=== PATIENT | male | born 1990 | race Caucasian/White ===

== ENCOUNTER → 2020-04-07 | Outpatient (CLI) | payer OTHER ==
[~2020-04-07] MED LIST: LEXAPRO20 MG PO; OXYC-325 PO; TRAZ-123 PO
== END | disposition home or self-care (01) ==
LOC: LAB 14:09
PROVIDERS: ATTEND Surgery
DX: Z01.818 Encounter for other preprocedural examination (principal); Z11.59 Encounter for screening for other viral diseases; K82.8 Other specified diseases of gallbladder
CPT/HCPCS: U0003-CS

== ENCOUNTER 2020-04-11 11:33 | Day surgery (SDC) | payer OTHER ==
[~2020-04-11] VITALS: Ht 193 cm; Wt 85.0 kg
[~2020-04-11 11:33] MED LIST changes: +ACETAMINOPHEN 500 MG TABLET PO ONE; +HYDROmorphone 2 MG/ML VIAL IV PRN; +IV RINGERS,LACTATED 1000ML 1,000 ML IV SCH; -LEXAPRO20 MG PO; +MORPHINE SULFATE 2 MG/ML VIAL. IV PRN; +ONDANSETRON PF 4 MG/2 ML VIAL. IV PRN; -OXYC-325 PO; +PROCHLORPERAZINE 10 MG/2 ML VIAL. IV PRN; -TRAZ-123 PO; +fentaNYL PF VIAL 100 MCG/2 ML VIAL IV PRN
[2020-04-11] MEDS ORDERED: LEXAPRO20 MG PO (12:21)
[2020-04-11] MEDS ORDERED: TRAZ-123 PO (12:21)
[2020-04-11] MEDS ORDERED: ACETAMINOPHEN 500 MG TABLET PO ONE (12:27)
[2020-04-11] MEDS ORDERED: ONDANSETRON PF 4 MG/2 ML VIAL. ONE (13:34)
[2020-04-11] MEDS ORDERED: LIDOCAINE 2% PF 5 ML VIAL. ONE (13:34)
[2020-04-11] MEDS ORDERED: PROPOFOL 10 MG/ML (20ML) VIAL. IV ONE ×2 (13:34→14:53)
[2020-04-11] MEDS ORDERED: DEXAMETHASONE SOD PHOS 4 MG/ML VIAL ONE (13:34)
[2020-04-11] MEDS ORDERED: ROCURONIUM 50 MG/5 ML VIAL. ONE (13:35)
[2020-04-11] MEDS ORDERED: MIDAZOLAM HCL/PF 2 MG/2 ML VIAL. ONE (13:35)
[2020-04-11] MEDS ORDERED: fentaNYL PF VIAL 100 MCG/2 ML VIAL ONE (13:35)
[2020-04-11] MEDS ORDERED: IOHEXOL 300 MG/ML 50 ML VIAL. ONE (13:56)
[2020-04-11] MEDS ORDERED: SURGICEL HEMOSTAT 4X8 EACH. ONE (13:56)
[2020-04-11] MEDS ORDERED: BUPIVACAINE-EPI 0.25%-1:200000 MPF 30 ML VIAL. ONE (13:56)
[2020-04-11] MEDS ORDERED: KETOROLAC 30 MG/ML VIAL. ONE (14:41)
[2020-04-11] MEDS ORDERED: NEOSTIGMINE METHYLSULFATE 5 MG/5 ML SYRINGE. ONE (14:41)
[2020-04-11] MEDS ORDERED: GLYCOPYRROLATE 1 MG/5 ML VIAL. ONE (14:41)
[2020-04-11] MEDS ORDERED: SEVOFLURANE 31 TO 60 MINUTES. IH ONE (14:48)
--- NOTE | 2020-04-11 14:48 | PDOC4 ---
Operative Note Operative Note Date: April 11, 2020 at 1446 Preoperative diagnosis: Biliary dyskinesia Postoperative diagnosis: Same Procedure: Laparoscopic cholecystectomy Specimen: Gallbladder Surgeon: Dirk Dictation: Patient is a 29-year-old male whose had right upper quadrant abdominal pain especially after eating ultrasound was negative HIDA scan showed nonfilling of the gallbladder. Procedure of laparoscopic cholecystectomy was explained to the patient detail was benefits were also discussed including bleeding infection injury to intra-abdominal contents possibly necessitating further or open operations alternatives to this procedure also discussed with the patient who seemed to understand and gave both verbal and written consent to have procedure performed. Patient was taken to the operating room placed the supine position general anesthesia was initiated once patient was sleeping intubated his abdomen was prepped and draped in usual sterile fashion using ChloraPrep. An area just below the umbilicus was injected with quarter percent Marcaine with epinephrine incision was made 11 blade scalpel and a varies needle was placed within the abdomen creating pneumoperitoneum once this was complete low millimeter port was placed and a 5 mm camera is placed within the abdomen which was inspected no other abnormalities were noted 5 mm port was then placed in the epigastrium a 5 mm port was placed in the right midabdomen 5 mm port was placed in the right lateral abdomen all under direct visualization. The dome of the gallbladder is grasped directed cephalad the infundibulum the gallbladder is grasped directed laterally exposing the triangle, the adherent tissues the triangle were taken down with blunt dissection exposing the cystic duct and cystic artery both were doubly clipped and transected the gallbladder was taken off the liver with hook electrocautery placed in Endo Catch bag moving the umbilicus the right upper quadrant was irrigated and suctioned dry hemostasis deemed appropriate and the pneumoperitoneum was reduced all ports were removed the fascial defect at the umbilicus was closed with a [id number] 0 Vicryl suture and the skin was reapproximated all port sites for subcuticular Monocryl Mastisol Steri-Strips and island dressings were applied. Patient was awakened and extubated in the operating room taken to recovery in stable condition all sp onge instrument needle counts listed as correct estimated blood loss 5 mL. MAKAYLA KEYES MD Apr 11, 2020 14:48
--- NOTE | 2020-04-11 14:49 | DISCH ---
DISCHARGE INSTRUCTIONS Condition on Discharge Condition on Discharge: Stable Activity After Discharge Activity Instructions for Disc: Avoid exertion Other activity instructions: No lifting more than 20 pounds for 2 weeks Diet after Discharge Diet after Discharge: Low Fat Wound Incision Care Other wound/incision instructi: May shower in 24 hours Contacting the after DC Call your doctor for: If your condition worsens Follow-Up Follow up with: Follow-up Dr. Keyes in 2 weeks MAKAYLA KEYES MD Apr 11, 2020 14:49
[2020-04-11] MEDS ORDERED: OXYC-325 PO ×2 (15:41→15:52)
[2020-04-11] MEDS ORDERED: oxyCODONE/APAP 5/325 1 TAB TABLET PO ONE ×2 (15:45)
[2020-04-11 16:00] VITALS: BP 133/75
--- NOTE | 2020-04-13 18:06 | PATHOLOGY ---
[facility] Accession Number: [id number] . 01 Material submitted: . gallbladder - GALLBLADDER . 02 Diagnosis: Gallbladder, laparoscopic cholecystectomy: - Chronic cholecystitis. ([facility] 04/[facility] [[email or web address] 04/13/2020 1330 Local . 02 Comment: There are no calculi identified within the gallbladder lumen or specimen container. There is no evidence of malignancy. ([facility] 04/13/2020) . 02 Electronically signed: . Jacob Velasco MD, Pathologist NPI- [id number] . 01 Gross description: . The specimen is received in formalin, labeled "Nagi Smith, gallbladder" and consists of an intact green gallbladder measuring 7.1 x 2.9 x 2.7 cm. The margin is inked. Opening reveals green bile and no stones are present. The mucosa is green and granular with a wall thickness 0.1 cm. A possible lymph node is identified. No gross lesions are identified. Yarding Engineer sections are submitted in A1. ([facility]; 04/12/2020) JFQ/JFQ 04/12/2020 1708 Local . 02 Pathologist provided ICD-10: K81.1 . 02 CPT . 061499 Specimen Comment: A courtesy copy of this report has been sent to [phone] Specimen Comment: [id number] Specimen Comment: Report sent to / DR MEDINA Performed at: 01 [facility] [address], [place] [id number] MD Vasiliy Boswell MD Phone: [phone] Performed at: 02 [facility] [address] [place], [place] [id number] MD Jacob Velasco MD Phone: [phone]
== END 2020-04-11 16:54 | disposition home or self-care (01) ==
LOC: SURG 11:33 → EDUNIT# 13:00 → SURG 16:54
PROVIDERS: ATTEND Surgery
DX: K82.8 Other specified diseases of gallbladder (principal); F41.9 Anxiety disorder, unspecified; Z87.891 Personal history of nicotine dependence
CPT/HCPCS: 47562; A7015; J0696; J1100; J1885; J2250; J2405; J2704; J2710; J3010; J3490; J7030; J7120; Q9967